=== PATIENT | male | born 1995 | race Hispanic/Latino ===

== ENCOUNTER 2018-07-12 13:13 | Emergency (ER) | payer SELFPAY ==
[2018-07-12] MEDS ORDERED: LEVALBUTEROL 1.25 MG/3 ML NEB ONE (13:42)
[2018-07-12] MEDS ORDERED: FAMOTIDINE 20 MG/2 ML VIAL IV ONE (13:42)
[2018-07-12] MEDS ORDERED: DIPHENHYDRAMINE 50 MG/ML VIAL ONE (13:42)
[2018-07-12] MEDS ORDERED: METHYLPREDNISOLONE 125 MG INJ ONE (13:42)
[2018-07-12] MEDS ORDERED: NA CHLORIDE 0.9% 1,000 ML ONE (13:44)
--- NOTE | 2018-07-12 14:54 | EDPHYS ---
Physician Documentation [facility] Name: Randal Arnett Age: 23 yrs Sex: Male : 1995 Arrival Date: 07/12/2018 Time: 13:16 Bed 7 Private MD: ED Physician Rojelio Warner HPI: 07/12 14:32 This 23 yrs old Male presents to ER via Ambulatory with complaints of Allergic rn Reaction. 14:32 The patient presents with difficulty swallowing, dizziness. Onset: The symptoms/episode rn began/occurred 2 hour(s) ago. Associated signs and symptoms: Pertinent positives: dysphagia, nausea, Pertinent negatives: Altered mental status chest pain, hives, rash, Syncope. Possible causes: cleaning products. Severity of symptoms: At their worst the symptoms were mild in the emergency department the symptoms are unchanged. The patient has not experienced similar symptoms in the past. Reports may have inhaled fumes from attorney, there was steam and he was in room, no history of allergies, began to feel throat swelling, trouble breathing, nausea. Drove himself home, and then here. . Historical: - Allergies: 13:26 No Known Allergies; aa5 - PMHx: 13:26 Anxiety; Depression; aa5 - PSHx: 13:26 None; aa5 - Immunization history:: Adult Immunizations unknown. - Ebola Screening: : No symptoms or risks identified at this time. - Family history:: not pertinent. - Social history:: Smoking status: unknown. - Hospitalizations: : No recent hospitalization is reported. ROS: 14:32 Constitutional: Negative for fever, chills, and weight loss, Eyes: Negative for injury, rn pain, redness, and discharge, Neck: Negative for injury, pain, and swelling, Cardiovascular: Negative for chest pain, and edema, Respiratory: Negative for wheezing, and pleuritic chest pain, Abdomen/GI: Negative for abdominal pain, vomiting, and constipation, MS/Extremity: Negative for injury and deformity, Skin: Negative for injury, rash, and discoloration, Neuro: Negative for headache, weakness, numbness, tingling, and seizure. Exam: 14:32 Constitutional: This is a well developed, well nourished patient who is awake, alert, rn appears anxious. Head/Face: Normocephalic, atraumatic. Eyes: Pupils equal round and reactive to light, extra-ocular motions intact. Lids and lashes normal. Conjunctiva and sclera are non-icteric and not injected. Cornea within normal limits. Periorbital areas with no swelling, redness, or edema. ENT: no stridor Neck: Trachea midline, no thyromegaly or masses palpated, and no cervical lymphadenopathy. Supple, full range of motion without nuchal rigidity, or vertebral point tenderness. No Meningismus. Cardiovascular: Regular rate and rhythm, No pulse deficits. Respiratory: Lungs have equal breath sounds bilaterally, clear to auscultation, mild tachypnea but no wheezing or stridor. Abdomen/GI: soft, non-tender MS/ Extremity: Pulses equal, no cyanosis. Neurovascular intact. Full, normal range of motion. Equal circumference. Neuro: Awake and alert, GCS 15, oriented to person, place, time, and situation. Cranial nerves II-XII grossly intact. Motor strength 5/5 in all extremities. Sensory grossly intact. Cerebellar exam normal. Normal gait. Vital Signs: 13:21 Pulse 92; Resp 20 S; Temp 98.7(TE); Pulse Ox 98% on R/A; aa5 MDM: 13:24 Patient medically screened. rn 14:53 Differential diagnosis: angioedema, inhalation reaction. Data reviewed: vital signs, rn nurses notes, and as a result, I will discharge patient. Counseling: I had a detailed discussion with the patient and/or guardian regarding: the historical points, exam findings, and any diagnostic results supporting the discharge/admit diagnosis, the need for outpatient follow up, to return to the emergency department if symptoms worsen or persist or if there are any questions or concerns that arise at home. Response to treatment: the patient's symptoms have markedly improved after treatment, and as a result, I will discharge patient. Special discussion: I discussed with the patient/guardian in detail that at this point there is no indication for admission to the hospital. It is understood, however, that if the symptoms persist or worsen the patient needs to return immediately for re-evaluation. Administered Medications: 13:40 Drug: NS 0.9% 1000 ml Route: IV; Rate: 1000 ml; Site: right wrist; sg 14:45 Follow up: IV Status: Completed infusion iw 13:45 Drug: Benadryl 25 mg Route: IVP; Site: right antecubital; sg 15:05 Follow up: Response: No adverse reaction; Marked relief of symptoms iw 13:45 Drug: Pepcid 20 mg Route: IVP; Site: right antecubital; sg 14:00 Follow up: Response: No adverse reaction iw 13:45 Drug: Xopenex 1.25 mg Route: Inhalation; sg 13:47 Not Given (Physician Discretion): SOLU-Medrol 2 mg/kg IVP once sg 13:48 Drug: SOLU-Medrol 125 mg Route: IVP; Site: right wrist; sg 15:05 Follow up: Response: No adverse reaction iw Disposition: 07/12/18 14:54 Discharged to Home. Impression: Inhalation reaction, Acute allergic reaction. - Condition is Stable. - Discharge Instructions: Chemical Inhalation Injury, Adult. - Prescriptions for Prednisone 20 mg Oral Tablet - take 3 tablet by ORAL route once daily for 5 days; 15 tablet. Albuterol Sulfate 90 mcg/actuation - inhale 1-2 puff by INHALATION route every 4-6 hours; 1 Inhaler. - Work release form, Medication Reconciliation Form, Thank You Letter, Antibiotic Education, Prescription Opioid Use form. - Follow up: Private Physician; When: As needed; Reason: Recheck today's complaints, Re-evaluation by your physician. - Problem is new. - Symptoms have improved. Signatures: Fredy Parker RN RN Christina Gomez RN RN Rojelio Warner MD MD rn Calderon, Audri, RN RN aa5 Corrections: (The following items were deleted from the chart) 15:05 14:54 07/12/2018 14:54 Discharged to Home. Impression: Inhalation reaction; Acute iw allergic reaction. Condition is Stable. Forms are Medication Reconciliation Form, Thank You Letter, Antibiotic Education, Prescription Opioid Use. Follow up: Private Physician; When: As needed; Reason: Recheck today's complaints, Re-evaluation by your physician. Problem is new. Symptoms have improved. rn
--- NOTE | 2018-07-12 14:54 | ER ---
Nurse's Notes [facility] Name: Randal Arnett Age: 23 yrs Sex: Male : 1995 Arrival Date: 07/12/2018 Time: 13:16 Bed 7 Private MD: Diagnosis: Inhalation reaction;Acute allergic reaction Presentation: 07/12 13:21 Presenting complaint: Patient states: "I think I am having an allergic reaction, I aa5 started feeling my throat tight a couple of hours ago". Redness and swelling noted under eyes. 13:21 Transition of care: patient was not received from another setting of care. Onset of aa5 symptoms was July 12, 2018. Care prior to arrival: None. 13:21 Method Of Arrival: Ambulatory aa5 13:21 Acuity: KWAN 2 aa5 15:04 Onset: The symptoms/episode began/occurred suddenly. Anaphylaxis evaluation, no signs iw or symptoms of anaphylaxis were noted. Risk Assessment: Do you want to hurt yourself or someone else? Patient reports no desire to harm self or others. Initial Sepsis Screen: Does the patient meet any 2 criteria? No. Patient's initial sepsis screen is negative. Does the patient have a suspected source of infection? No. Patient's initial sepsis screen is negative. Triage Assessment: 15:04 General: Behavior is calm. iw Historical: - Allergies: 13:26 No Known Allergies; aa5 - PMHx: 13:26 Anxiety; Depression; aa5 - PSHx: 13:26 None; aa5 - Immunization history:: Adult Immunizations unknown. - Ebola Screening: : No symptoms or risks identified at this time. - Family history:: not pertinent. - Social history:: Smoking status: unknown. - Hospitalizations: : No recent hospitalization is reported. Screenin:40 Abuse screen: Denies threats or abuse. Denies injuries from another. Nutritional sg screening: No deficits noted. Tuberculosis screening: No symptoms or risk factors identified. Never had TB. Fall Risk None identified. Assessment: 13:40 General: Appears in no apparent distress. well groomed, well developed, well nourished. sg Pain: Complains of pain in right eye and left eye. 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 Full function Gait is steady, Speech is normal. Cardiovascular: Heart tones S1 S2 present. Respiratory: Airway is patent Respiratory effort is even, unlabored, Respiratory pattern is regular, symmetrical, Breath sounds are clear bilaterally. GI: No signs and/or symptoms were reported involving the gastrointestinal system. : No signs and/or symptoms were reported regarding the genitourinary system. EENT: No signs and/or symptoms were reported regarding the EENT system. Derm: Skin is intact, is healthy with good turgor, Skin is dry, Skin is normal, Skin temperature is warm. Musculoskeletal: No signs and/or symptoms reported regarding the musculoskeletal system. Vital Signs: 13:21 Pulse 92; Resp 20 S; Temp 98.7(TE); Pulse Ox 98% on R/A; aa5 ED Course: 13:16 Patient arrived in ED. mr 13:21 Arm band placed on Patient placed in an exam room, on a stretcher. aa5 13:24 Rojelio Warner MD is Attending Physician. rn 13:26 Triage completed. aa5 13:40 Patient has correct armband on for positive identification. iw 13:42 Fredy Parker, RN is Primary Nurse. sg 15:03 No provider procedures requiring assistance completed. IV discontinued, intact, iw bleeding controlled, No redness/swelling at site. Pressure dressing applied. Administered Medications: 13:40 Drug: NS 0.9% 1000 ml Route: IV; Rate: 1000 ml; Site: right wrist; sg 14:45 Follow up: IV Status: Completed infusion iw 13:45 Drug: Benadryl 25 mg Route: IVP; Site: right antecubital; sg 15:05 Follow up: Response: No adverse reaction; Marked relief of symptoms iw 13:45 Drug: Pepcid 20 mg Route: IVP; Site: right antecubital; sg 14:00 Follow up: Response: No adverse reaction iw 13:45 Drug: Xopenex 1.25 mg Route: Inhalation; sg 13:47 Not Given (Physician Discretion): SOLU-Medrol 2 mg/kg IVP once sg 13:48 Drug: SOLU-Medrol 125 mg Route: IVP; Site: right wrist; sg 15:05 Follow up: Response: No adverse reaction iw Outcome: 14:54 Discharge ordered by . rn 15:04 Discharged to home ambulatory. iw 15:04 Condition: good 15:04 Discharge instructions given to patient, Instructed on discharge instructions, follow up and referral plans. medication usage, Demonstrated understanding of instructions, follow-up care, medications, Prescriptions given X 2. 15:05 Patient left the ED. iw Signatures: Fredy Parker, RN Lashay Hale Irene RN Rojelio Ruff MD MD rn Calderon, Audri, RN RN aa5
== END 2018-07-12 15:05 | disposition home or self-care (01) ==
LOC: ER 13:13
DX: R13.10 Dysphagia, unspecified (principal); R42 Dizziness and giddiness; T78.49XA Other allergy, initial encounter; F41.9 Anxiety disorder, unspecified; F32.9 Major depressive disorder, single episode, unspecified
CPT/HCPCS: 96361; 96374; 96375; 99284; J2930; J7030

== ENCOUNTER 2018-11-24 13:41 | Emergency (ER) | payer SELFPAY ==
[2018-11-24] MEDS ORDERED: LEVALBUTEROL 1.25 MG/3 ML NEB ONE (14:25)
[2018-11-24 14:35] LABS: Absolute Lymphocytes (CBC) 3.7 K/uL (0.7-4.9); Basophils % 0.6 % (0-1.3); Hematocrit 43.7 % (39.6-49.0); Lymphocytes % 36.9 % (15.3-44.8); MPV 9.4 fL (7.6-11.3); RBC Red Blood Cell Count 4.71 M/uL (4.33-5.43)
--- NOTE | 2018-11-24 14:38 | RAD REPORT ---
EXAM DESCRIPTION: Peyton Single View11/24/2018 2:32 pm CLINICAL HISTORY: Shortness of breath COMPARISON: 2017 FINDINGS: The lungs appear clear of acute infiltrate. The heart is normal size IMPRESSION: No acute abnormalities displayed
[2018-11-24 14:55] LABS: ALT/SGPT 16 U/L (12-78); AST/SGOT 14 U/L (15-37); Albumin 4.2 g/dL (3.4-5.0); Alkaline Phosphatase 89 U/L (45-117); BUN Blood Urea Nitrogen 12 mg/dL (7-18); Bicarbonate 22 mmol/L (21-32); Bilirubin Direct 0.1 mg/dL (0-0.2); Bilirubin Total 0.4 mg/dL (0.2-1.0); Glucose Level 88 mg/dL (74-106); Magnesium 1.9 mg/dL (1.8-2.4); NT PRO-BNP 169 pg/mL (<125); Potassium 3.8 mmol/L (3.5-5.1); Protein, Total 7.8 g/dL (6.4-8.2); Sodium Level 145 mmol/L (136-145); Troponin (Emerg Dept Use Only) < 0.02 ng/mL (0.0-0.045)
[2018-11-24 15:09] LABS: Barbiturates NEGATIVE (NEGATIVE); Benzodiazepines POSITIVE (NEGATIVE); Cocaine NEGATIVE (NEGATIVE); METHAMPHETAM NEGATIVE (NEGATIVE); Methadone NEGATIVE (NEGATIVE); Opiates NEGATIVE (NEGATIVE); Phencyclidine NEGATIVE (NEGATIVE); THC Cannibis POSITIVE (NEGATIVE)
--- NOTE | 2018-11-24 16:05 | EDPHYS ---
Physician Documentation [facility] Name: Randal Arnett Age: 23 yrs Sex: Male : 1995 Arrival Date: 11/24/2018 Time: 13:42 Bed 16 Private MD: ED Physician Rojelio Warner HPI: 11/24 14:07 This 23 yrs old Male presents to ER via Ambulatory with complaints of jmm Shortness Of Breath, Chest Pain, Foot Pain. 14:07 The patient has shortness of breath at rest. Onset: The symptoms/episode began/occurred jmm gradually, 3 week(s) ago. Duration: The symptoms are continuous, and are steadily getting worse. The patient's shortness of breath is aggravated by nothing, is alleviated by nothing. Associated signs and symptoms: Pertinent positives: chest pain. This is a 23 year old male with a history of anxiety and depression that presents to the ED with complaints of cough, shortness of breath beginning approx 3 weeks ago. Patient states he has had similar symptoms with previous episodes of bronchitis. Patient denies fever or chills. Patient also complains of intermittent chest pain. . Historical: - Allergies: 13:50 No Known Allergies; la1 - Home Meds: 13:50 None [Active]; la1 - PMHx: 13:50 Anxiety; Depression; la1 - PSHx: 13:50 None; la1 - Immunization history:: Adult Immunizations up to date. - Social history:: Smoking status: Patient uses tobacco products, smokes one-half pack cigarettes per day. - Ebola Screening: : No symptoms or risks identified at this time. ROS: 14:07 Abdomen/GI: Negative for abdominal pain, nausea, vomiting, diarrhea, and constipation, jmm Back: Negative for injury and pain, : Negative for injury, bleeding, discharge, and swelling, MS/Extremity: Negative for injury and deformity, Skin: Negative for injury, rash, and discoloration, Neuro: Negative for headache, weakness, numbness, tingling, and seizure. 14:07 Constitutional: Positive for body aches. 14:07 Cardiovascular: Positive for chest pain. 14:07 Respiratory: Positive for cough. 14:07 Psych: 14:07 All other systems are negative. Exam: 14:07 Head/Face: atraumatic. Eyes: EOMI, no conjunctival erythema appreciated ENT: Moist jmm Mucus Membranes Neck: Trachea midline, Supple Chest/axilla: Normal chest wall appearance and motion. 14:07 Abdomen/GI: Non distended, soft Back: Normal ROM Skin: General appearance color normal MS/ Extremity: Moves all extremities, no obvious deformities appreciated, no edema noted to the lower extremities Neuro: Awake and alert, normal gait Psych: Behavior is normal, Mood is normal, Patient is cooperative and pleasant 14:07 Constitutional: The patient appears alert, awake, anxious. 14:07 Cardiovascular: Rate: normal, Rhythm: regular, Pulses: no pulse deficits are appreciated. 14:07 Respiratory: the patient does not display signs of respiratory distress, Respirations: normal, Breath sounds: are clear throughout. Vital Signs: 13:50 BP 113 / 69; Pulse 82; Resp 24; Temp 98.3; Pulse Ox 100% on R/A; Weight 79.38 kg; la1 Height 5 ft. 9 in. (175.26 cm); 14:30 BP 109 / 69; Pulse 64; Resp 18; Pulse Ox 99% on R/A; rv 15:45 BP 119 / 60; Pulse 86; Resp 18; Pulse Ox 100% on R/A; rv 16:47 BP 118 / 66; Pulse 67; Resp 16; Temp 98; Pulse Ox 100% on R/A; rv 13:50 Body Mass Index 25.84 (79.38 kg, 175.26 cm) la1 MDM: 14:07 Patient medically screened. [facility] 16:02 Data reviewed: vital signs, nurses notes. [facility] 16:02 Counseling: I had a detailed discussion with the patient and/or guardian regarding: the [facility] historical points, exam findings, and any diagnostic results supporting the discharge/admit diagnosis, lab results, radiology results, the need for outpatient follow up, to return to the emergency department if symptoms worsen or persist or if there are any questions or concerns that arise at home. ED course: Patient is alert and non toxic in appearance in the ED. I discussed with the patient the need to follow up with pcp. Symptoms are most likely due to a viral infection. CXR clear, no Leukocytosis. Patient otherwise given strict return precautions. patient understood and agrees with the plan of care. . 11/24 14:11 Order name: Basic Metabolic Panel [facility] 11/24 14:11 Order name: CBC with Diff [facility] 11/24 14:11 Order name: LFT's; Complete Time: 15:08 [facility] 11/24 14:11 Order name: Magnesium; Complete Time: 15:08 [facility] 11/24 14:11 Order name: NT PRO-BNP; Complete Time: 15:08 [facility] 11/24 14:11 Order name: PT-INR; Complete Time: 15:08 [facility] 11/24 14:11 Order name: Troponin (emerg Dept Use Only); Complete Time: 15:08 [facility] 11/24 14:11 Order name: XRAY Chest (1 view); Complete Time: 14:40 [facility] 11/24 14:11 Order name: EKG; Complete Time: 14:12 [facility] 11/24 14:11 Order name: D-Dimer; Complete Time: 15:08 [facility] 11/24 14:12 Order name: Basic Metabolic Panel; Complete Time: 15:08 [facility] 11/24 14:12 Order name: CBC with Automated Diff; Complete Time: 14:40 [facility] 11/24 14:25 Order name: Urine Drug Screen; Complete Time: 15:10 [facility] 11/24 14:11 Order name: Cardiac monitoring; Complete Time: 14:42 [facility] 11/24 14:11 Order name: EKG - Nurse/Tech; Complete Time: 14:42 [facility] 11/24 14:11 Order name: IV Saline Lock; Complete Time: 14:42 [facility] 11/24 14:11 Order name: Labs collected and sent; Complete Time: 14:42 [facility] 11/24 14:11 Order name: O2 Per Protocol; Complete Time: 14:42 [facility] 11/24 14:11 Order name: O2 Sat Monitoring; Complete Time: 14:42 [facility] Administered Medications: 14:15 Drug: Xopenex (3) 1.25 mg Route: Inhalation; rv 15:42 Follow up: Response: Marked relief of symptoms rv Disposition: 18:13 Co-signature as Attending Physician, Rojelio Warner MD. rn Disposition: 11/24/18 16:04 Discharged to Home. Impression: Acute bronchitis. - Condition is Stable. - Discharge Instructions: Acute Bronchitis, Adult. - Prescriptions for Prednisone 20 mg Oral Tablet - take 3 tablet by ORAL route once daily for 5 days; 15 tablet. Albuterol Sulfate 90 mcg/actuation - inhale 1-2 puff by INHALATION route every 4-6 hours; 1 Inhaler. - Medication Reconciliation Form, Thank You Letter, Antibiotic Education, Prescription Opioid Use, Work release form form. - Follow up: Private Physician; When: 2 - 3 days; Reason: Recheck today's complaints, Continuance of care, Re-evaluation by your physician. Signatures: Dispatcher [employer] EDAlonzo Deluca PA PA jmm Nieto, Roman, MD MD rn Buddy Almeida RN RN laEben Raygoza RN RN rv Corrections: (The following items were deleted from the chart) 16:48 16:04 11/24/2018 16:04 Discharged to Home. Impression: Acute bronchitis. Condition is rv Stable. Forms are Medication Reconciliation Form, Thank You Letter, Antibiotic Education, Prescription Opioid Use. Follow up: Private Physician; When: 2 - 3 days; Reason: Recheck today's complaints, Continuance of care, Re-evaluation by your physician. ludwig
--- NOTE | 2018-11-24 16:05 | ER ---
Nurse's Notes [facility] Name: Randal Arnett Age: 23 yrs Sex: Male : 1995 Arrival Date: 11/24/2018 Time: 13:42 Bed 16 Private MD: Diagnosis: Acute bronchitis Presentation: 11/24 13:51 Presenting complaint: Patient states: I have been feeling very SOB and having a burning la1 pain in my chest. I just got over a cough for the last three weeks. Transition of care: patient was not received from another setting of care. Onset of symptoms was November 24, 2018. Risk Assessment: Do you want to hurt yourself or someone else? Patient reports no desire to harm self or others. Initial Sepsis Screen: Does the patient meet any 2 criteria? No. Patient's initial sepsis screen is negative. Does the patient have a suspected source of infection? No. Patient's initial sepsis screen is negative. Care prior to arrival: None. 13:51 Method Of Arrival: Ambulatory la1 13:51 Acuity: KWAN 3 la1 Triage Assessment: 14:02 General: Appears in no apparent distress. General: Behavior is anxious, crying. rv Respiratory: Reports shortness of breath at rest the patient has mild shortness of breath. Respiratory: Airway is patent Breath sounds are clear bilaterally. Onset: The symptoms/episode began/occurred suddenly. Historical: - Allergies: 13:50 No Known Allergies; la1 - Home Meds: 13:50 None [Active]; la1 - PMHx: 13:50 Anxiety; Depression; la1 - PSHx: 13:50 None; la1 - Immunization history:: Adult Immunizations up to date. - Social history:: Smoking status: Patient uses tobacco products, smokes one-half pack cigarettes per day. - Ebola Screening: : No symptoms or risks identified at this time. Screenin:02 Abuse screen: Denies threats or abuse. Denies injuries from another. Nutritional rv screening: No deficits noted. Tuberculosis screening: No symptoms or risk factors identified. Fall Risk None identified. Assessment: 14:00 General: Appears in no apparent distress. Behavior is anxious, crying. Pain: Complains rv of pain in chest Quality of pain is described as burning, Pain began suddenly, 1 day ago. Neuro: Level of Consciousness is awake, alert, obeys commands, Oriented to person, place, time, situation. Cardiovascular: Patient's skin is warm and dry. Rhythm is regular. Respiratory: Airway is patent Respiratory effort is even, unlabored, Breath sounds are clear bilaterally. GI: No signs and/or symptoms were reported involving the gastrointestinal system. : No signs and/or symptoms were reported regarding the genitourinary system. EENT: No signs and/or symptoms were reported regarding the EENT system. Derm: Skin is intact. Musculoskeletal: No signs and/or symptoms reported regarding the musculoskeletal system. 15:42 Reassessment: Patient appears in no apparent distress at this time. Patient and/or rv family updated on plan of care and expected duration. Pain level reassessed. Patient is alert, oriented x 3, equal unlabored respirations, skin warm/dry/pink. Patient states feeling better. Patient states symptoms have improved. Vital Signs: 13:50 BP 113 / 69; Pulse 82; Resp 24; Temp 98.3; Pulse Ox 100% on R/A; Weight 79.38 kg; la1 Height 5 ft. 9 in. (175.26 cm); 14:30 BP 109 / 69; Pulse 64; Resp 18; Pulse Ox 99% on R/A; rv 15:45 BP 119 / 60; Pulse 86; Resp 18; Pulse Ox 100% on R/A; rv 16:47 BP 118 / 66; Pulse 67; Resp 16; Temp 98; Pulse Ox 100% on R/A; rv 13:50 Body Mass Index 25.84 (79.38 kg, 175.26 cm) la1 ED Course: 13:42 Patient arrived in ED. as 13:50 Arm band placed on left wrist. la1 13:51 Triage completed. la1 13:52 Eben Mauricio, LOPEZ is Primary Nurse. rv 14:00 Alonzo Rich PA is PHCP. [facility] 14:00 Rojelio Warner MD is Attending Physician. [facility] 14:02 EKG done, by central processing technician. reviewed by Rojelio Warner MD. at1 14:03 Patient has correct armband on for positive identification. Placed in gown. Bed in low rv position. Call light in reach. Side rails up X 1. manager monitoring on. Pulse ox on. NIBP on. 14:15 Inserted saline lock: 18 gauge in left forearm, using aseptic technique. Blood rv collected. 14:33 XRAY Chest (1 view) In Process Unspecified. EDMS 16:47 No provider procedures requiring assistance completed. IV discontinued, intact, rv bleeding controlled, No redness/swelling at site. Pressure dressing applied. Administered Medications: 14:15 Drug: Xopenex (3) 1.25 mg Route: Inhalation; rv 15:42 Follow up: Response: Marked relief of symptoms rv Outcome: 16:04 Discharge ordered by . ludwig 16:47 Discharged to home ambulatory. rv 16:47 Condition: good 16:47 Discharge instructions given to patient, Instructed on discharge instructions, follow up and referral plans. medication usage, Demonstrated understanding of instructions, follow-up care, medications, Prescriptions given X 2. 16:48 Patient left the ED. rv Signatures: Dispatcher [employer] EDMS Alonzo Rich PA PA jmm Martinez, Amelia as Gonzales, Amanda, house painter helper EKG Tat1 Buddy Almeida RN RN la1 Eben Mauricio, RN RN rv Corrections: (The following items were deleted from the chart) 13:53 13:50 BP 113 / 69; Pulse 82bpm; Resp 16bpm; Pulse Ox 100% RA; Temp 98.3F; 79.38 kg; la1 Height 5 ft. 9 in.; BMI: 25.8; la1
--- NOTE | 2018-11-25 09:10 | EKG ---
Test Date: 2018-11-24 Test Time: 13:58:17 Setup Technician: JOE MEASUREMENT RESULTS: Intervals: Rate: 87 AR: 156 QRSD: 84 QT: 344 QTc: 413 [place]: P: 76 AR: 156 QRS: 66 T: 67 INTERPRETIVE STATEMENTS: Normal sinus rhythm Normal ECG Compared to ECG 06/21/2016 15:50:03 Sinus bradycardia no longer present Electronically Signed On 11-25-18 09:08:06 CDT by Destin Wagner
== END 2018-11-24 16:48 | disposition home or self-care (01) ==
LOC: ER 13:41
DX: J20.9 Acute bronchitis, unspecified (principal); F17.210 Nicotine dependence, cigarettes, uncomplicated
CPT/HCPCS: 36415; 71045; 80048; 80076; 80307; 83735; 83880; 84484; 85025; 85379; 85610; 93005; 99285

== ENCOUNTER 2019-03-11 08:00 | Emergency (ER) | payer SELFPAY ==
--- NOTE | 2019-03-11 08:22 | ER ---
Nurse's Notes [facility] Name: Randal Arnett Age: 23 yrs Sex: Male : 1995 Arrival Date: 03/11/2019 Time: 08: Bed 16 Private MD: Diagnosis: Sebaceous cyst;Periorbital swelling Presentation: 03/11 08:04 Presenting complaint: Patient states: Right eye started swelling yesterday and then he rb1 thinks that he was bitten by a misquito. Transition of care: patient was not received from another setting of care. Onset of symptoms was March 10, 2019. Risk Assessment: Do you want to hurt yourself or someone else? Patient reports no desire to harm self or others. Initial Sepsis Screen: Does the patient meet any 2 criteria? No. Patient's initial sepsis screen is negative. Does the patient have a suspected source of infection? Yes: Skin breakdown/wound. Care prior to arrival: None. 08:04 Method Of Arrival: Ambulatory rb1 08:04 Acuity: KWAN 4 rb1 Triage Assessment: 08:04 General: Appears uncomfortable, Behavior is calm, cooperative, Denies fever. Pain: rb1 Complains of pain in right eye Pain currently is 7 out of 10 on a pain scale. Pain began 1 day ago. EENT: Eyes are tearing on right eye swelling noted to the right eye. Neuro: Level of Consciousness is awake, alert, obeys commands, Oriented to person, place, time, situation. Cardiovascular: Capillary refill < 3 seconds is brisk in bilateral fingers. Respiratory: Airway is patent Respiratory effort is even, unlabored, Respiratory pattern is regular, symmetrical. GI: No signs and/or symptoms were reported involving the gastrointestinal system. : No signs and/or symptoms were reported regarding the genitourinary system. Derm: Skin is pink, warm \T\ dry. Musculoskeletal: Swelling present in right eye. Historical: - Allergies: 08:04 No Known Allergies; rb1 - Home Meds: 08:04 None [Active]; rb1 - PMHx: 08:04 Anxiety; Depression; Asthma; rb1 - PSHx: 08:04 None; rb1 - Immunization history:: Adult Immunizations up to date. - Social history:: Smoking status: Patient uses tobacco products, smokes one-half pack cigarettes per day. - Ebola Screening: : Patient negative for fever greater than or equal to 101.5 degrees Fahrenheit, and additional compatible Ebola Virus Disease symptoms. Screenin:04 Abuse screen: Denies threats or abuse. Nutritional screening: No deficits noted. rb1 Tuberculosis screening: No symptoms or risk factors identified. Fall Risk None identified. Vital Signs: 08:04 BP 125 / 74; Pulse 56; Resp 17; Temp 97.9(O); Pulse Ox 100% on R/A; Weight 81.65 kg rb1 (R); Height 5 ft. 9 in. (175.26 cm) (R); Pain 7/10; 08:04 Body Mass Index 26.58 (81.65 kg, 175.26 cm) rb1 ED Course: 08:01 Patient arrived in ED. as 08:04 Keri Garcia, RN is Primary Nurse. rb1 08:04 Arm band placed on right wrist. rb1 08:04 Patient has correct armband on for positive identification. Bed in low position. Call rb1 light in reach. Side rails up X 1. Pulse ox on. NIBP on. 08:05 Joe Banegas MD is Attending Physician. ps1 08:32 Triage completed. rb1 08:41 No provider procedures requiring assistance completed. Patient did not have IV access rb1 during this emergency room visit. Administered Medications: 08:29 Drug: Decadron 10 mg Route: PO; rb1 08:41 Follow up: Response: Medication administered at discharge. rb1 08:29 Drug: Motrin 800 mg Route: PO; rb1 08:41 Follow up: Response: Medication administered at discharge. rb1 Outcome: 08:22 Discharge ordered by . ps1 08:41 Discharged to home ambulatory, with significant other. rb1 08:41 Condition: stable 08:41 Discharge instructions given to patient, Instructed on discharge instructions, follow up and referral plans. medication usage, Demonstrated understanding of instructions, follow-up care, medications, Prescriptions given X 2. 08:43 Patient left the ED. rb1 Signatures: Bella Jarvis as Keri Garcia, LOPEZ RN rb1 Joe Banegas MD MD ps1
--- NOTE | 2019-03-11 08:22 | EDPHYS ---
Physician Documentation [facility] Name: Randal Arnett Age: 23 yrs Sex: Male : 1995 Arrival Date: 03/11/2019 Time: 08:01 Bed 16 Private MD: ED Physician Joe Banegas HPI: 03/11 08:16 This 23 yrs old Male presents to ER via Unassigned with complaints of Eye ps1 Swelling. 08:16 Patient has 1 day of periorbial swelling of right eye. Noticed yesterday and thought ps1 maybe he had a mosquito bite. Patient has underlying sebaceous cyst. No pain with eye movement. No signs of orbital cellulitis. Feels tense in tissues underneath eye. No fever. . Historical: - Allergies: 08:04 No Known Allergies; rb1 - Home Meds: 08:04 None [Active]; rb1 - PMHx: 08:04 Anxiety; Depression; Asthma; rb1 - PSHx: 08:04 None; rb1 - Immunization history:: Adult Immunizations up to date. - Social history:: Smoking status: Patient uses tobacco products, smokes one-half pack cigarettes per day. - Ebola Screening: : Patient negative for fever greater than or equal to 101.5 degrees Fahrenheit, and additional compatible Ebola Virus Disease symptoms. ROS: 08:16 Constitutional: Negative for fever, chills, and weight loss, ENT: Negative for injury, ps1 pain, and discharge, Cardiovascular: Negative for chest pain, palpitations, and edema, Respiratory: Negative for shortness of breath, cough, wheezing, and pleuritic chest pain, Abdomen/GI: Negative for abdominal pain, nausea, vomiting, diarrhea, and constipation, Neuro: Negative for headache, weakness, numbness, tingling, and seizure. 08:16 Eyes: Positive for periorbital swelling of right eye. Exam: 08:16 Constitutional: This is a well developed, well nourished patient who is awake, alert, ps1 and in no acute distress. Head/Face: Normocephalic, atraumatic. Cardiovascular: Regular rate and rhythm. No gallops, murmurs, or rubs. Normal PMI, no JVD. No pulse deficits. Respiratory: Lungs have equal breath sounds bilaterally, clear to auscultation and percussion. No rales, rhonchi or wheezes noted. No increased work of breathing, no retractions or nasal flaring. Abdomen/GI: Soft, non-tender, with normal bowel sounds. No distension or tympany. No guarding or rebound. No evidence of tenderness throughout. Skin: Warm, dry with normal turgor. Normal color with no rashes, no lesions, and no evidence of cellulitis. MS/ Extremity: Pulses equal, no cyanosis. Neurovascular intact. Full, normal range of motion. Neuro: Awake and alert, GCS 15, oriented to person, place, time, and situation. Cranial nerves II-XII grossly intact. Sensory grossly intact. 08:16 Eyes: Periorbital structures: cellulitis, is not appreciated, erythema, is not appreciated, swelling, that is moderate, sebaceous cyst infralateral aspect of right periorbital tissue. Expressed. . Vital Signs: 08:04 BP 125 / 74; Pulse 56; Resp 17; Temp 97.9(O); Pulse Ox 100% on R/A; Weight 81.65 kg rb1 (R); Height 5 ft. 9 in. (175.26 cm) (R); Pain 7/10; 08:04 Body Mass Index 26.58 (81.65 kg, 175.26 cm) rb1 MDM: 08:16 Differential diagnosis: periorbital cellulitis, orbital cellulitis, histamine reaction, ps1 localized swelling, sebaceous cyst, and others. Data reviewed: vital signs, nurses notes. Counseling: I had a detailed discussion with the patient and/or guardian regarding: the historical points, exam findings, and any diagnostic results supporting the discharge/admit diagnosis, to return to the emergency department if symptoms worsen or persist or if there are any questions or concerns that arise at home. 08:22 Patient medically screened. ps1 Administered Medications: 08:29 Drug: Decadron 10 mg Route: PO; rb1 08:41 Follow up: Response: Medication administered at discharge. rb1 08:29 Drug: Motrin 800 mg Route: PO; rb1 08:41 Follow up: Response: Medication administered at discharge. rb1 Disposition: 03/11/19 08:22 Discharged to Home. Impression: Sebaceous cyst, Periorbital swelling. - Condition is Stable. - Discharge Instructions: Orbital Cellulitis, Epidermal Cyst. - Prescriptions for Anaprox DS 550 mg Oral Tablet - take 1 tablet by ORAL route every 12 hours As needed; 20 tablet. Clindamycin HCl 300 mg Oral Capsule - take 1 capsule by ORAL route every 6 hours for 10 days; 40 capsule. - Work release form, Medication Reconciliation Form, Thank You Letter, Antibiotic Education, Prescription Opioid Use form. - Follow up: Emergency Department; When: As needed; Reason: Fever > 102 F, Worsening of condition, pain with eye movement. Visual changes. - Problem is new. - Symptoms have improved. Signatures: Keri Garcia RN RN rb1 Joe Banegas MD MD ps1 Corrections: (The following items were deleted from the chart) 08:43 08:22 03/11/2019 08:22 Discharged to Home. Impression: Sebaceous cyst; Periorbital rb1 swelling. Condition is Stable. Forms are Medication Reconciliation Form, Thank You Letter, Antibiotic Education, Prescription Opioid Use. Follow up: Emergency Department; When: As needed; Reason: Fever > 102 F, Worsening of condition, pain with eye movement. Visual changes. Problem is new. Symptoms have improved. ps1
[2019-03-11] MEDS ORDERED: IBUPROFEN 400 MG TAB ONE (08:27)
[2019-03-11] MEDS ORDERED: dexAMETHasone 4 MG TAB ONE (08:27)
[2019-03-11 09:06] VITALS: BP 125/74; TEMP 97.9; O2SAT 100
== END 2019-03-11 08:43 | disposition home or self-care (01) ==
LOC: ER 08:00
DX: H00.011 Hordeolum externum right upper eyelid (principal); H00.012 Hordeolum externum right lower eyelid; F17.210 Nicotine dependence, cigarettes, uncomplicated
CPT/HCPCS: 99283; J8540

== ENCOUNTER 2019-09-17 07:29 | Emergency (ER) | payer SELFPAY ==
[2019-09-17] MEDS ORDERED: MAGNE/ALUM HYDROXD 30 ML UCUP ONE (08:02)
[2019-09-17] MEDS ORDERED: NA CHLORIDE 0.9% 1,000 ML ONE (08:03)
[2019-09-17] MEDS ORDERED: ONDANSETRON 4 MG/2 ML VIAL ONE (08:03)
[2019-09-17] MEDS ORDERED: LIDOCAINE VISCOUS 2% SOLN 15 ML UDC ONE (08:03)
[2019-09-17 08:22] LABS: Absolute Lymphocytes (CBC) 2.4 K/uL (0.7-4.9); Basophils % 0.7 % (0-1.3); Hematocrit 41.9 % (39.6-49.0); Lymphocytes % 30.2 % (15.3-44.8); MPV 9.8 fL (7.6-11.3); RBC Red Blood Cell Count 4.48 M/uL (4.33-5.43)
[2019-09-17 08:32] LABS: Bilirubin Direct 0.1 mg/dL (0-0.2); Bilirubin Total 0.4 mg/dL (0.2-1.0); Protein, Total 7.3 g/dL (6.4-8.2)
--- NOTE | 2019-09-17 09:39 | ER ---
Nurse's Notes [facility] Name: Randal Arnett Age: 24 yrs Sex: Male : 1995 Arrival Date: 09/17/2019 Time: 07:32 Bed 20 Private MD: None, None Diagnosis: Gastro-esophageal reflux disease;Nausea and vomiting Presentation: 09/16 07:44 Chief complaint: Patient states: Woke up this morning with mild heart burn and ss vomiting. Pt reports that after vomiting episode now his whole abdomen seems to be burning. Coronavirus screen: Proceed with normal triage. Patient denies a cough. Patient denies shortness of breath or difficulty breathing. Patient denies measured and/or subjective temperature greater than 100.4F prior to today's visit. Patient denies travel on a cruise ship or to a country the [facility] currently lists as an affected area. Patient denies contact with known and/or suspected case of COVID-19. Ebola Screen: Patient denies exposure to infectious person. Patient denies travel to an Ebola-affected area in the 21 days before illness onset. Initial Sepsis Screen: Does the patient meet any 2 criteria? No. Patient's initial sepsis screen is negative. Does the patient have a suspected source of infection? No. Patient's initial sepsis screen is negative. Risk Assessment: Do you want to hurt yourself or someone else? Patient reports no desire to harm self or others. Onset of symptoms was September 17, 2019. 07:44 Method Of Arrival: Ambulatory ss 07:44 Acuity: KWAN 3 ss Historical: - Allergies: 07:46 No Known Allergies; ss - Home Meds: 07:46 None [Active]; ss - PMHx: 07:46 Anxiety; Asthma; Depression; ss - PSHx: 07:46 None; ss - Immunization history:: Adult Immunizations up to date. - Social history:: Smoking status: Patient reports the use of cigarette tobacco products, 1/4 ppd. Screenin:14 Abuse screen: Denies threats or abuse. Denies injuries from another. Nutritional ss screening: No deficits noted. Tuberculosis screening: Never had TB. Fall Risk None identified. Assessment: 07:37 General: Appears distressed, uncomfortable, Behavior is cooperative, anxious, crying, ss Reports feeling ill for this morning. Pt states, "I ate something bad last night.". Denies fever, fatigue, chills. Pain: Complains of pain in abdomen Pain currently is 9 out of 10 on a pain scale. Quality of pain is described as burning, Pain began this morning after vomiting episode Is continuous, Aggravated by increased activity. Neuro: Level of Consciousness is awake, alert, obeys commands, Oriented to person, place, time, situation. Cardiovascular: Capillary refill < 3 seconds is brisk in bilateral fingers. Respiratory: Airway is patent Respiratory effort is even, unlabored, Respiratory pattern is regular, symmetrical. GI: Bowel sounds present X 4 quads. Abd is soft and non tender X 4 quads. Reports nausea, vomiting, since this AM. : No signs and/or symptoms were reported regarding the genitourinary system. EENT: Oral mucosa is moist. Throat is clear. Derm: Skin is intact, is healthy with good turgor, Skin is dry, Skin is pink, warm \\T\\ dry. normal. Musculoskeletal: Swelling absent. 08:14 Reassessment: Patient appears in no apparent distress at this time. Patient and/or ss family updated on plan of care and expected duration. Pain level reassessed. Patient is alert, oriented x 3, equal unlabored respirations, skin warm/dry/pink. Pt reports that symptoms have improved since medication administration. abd burning has decreased as well as nausea. Patient states feeling better. Patient states symptoms have improved. 08:53 Reassessment: Patient appears in no apparent distress at this time. Patient and/or ss family updated on plan of care and expected duration. Pain level reassessed. Patient is alert, oriented x 3, equal unlabored respirations, skin warm/dry/pink. Patient denies pain at this time. Patient states feeling better. Vital Signs: 07:44 BP 120 / 79; Pulse 73; Resp 18; Temp 98.2(TE); Pulse Ox 98% on R/A; Weight 79.38 kg; ss Height 5 ft. 9 in. (175.26 cm); Pain 9/10; 09:43 BP 104 / 66; Pulse 51; Resp 16 S; Pulse Ox 100% on R/A; ss 07:44 Body Mass Index 25.84 (79.38 kg, 175.26 cm) ED Course: 07:32 Patient arrived in ED. mr 07:32 None, None is Private Physician. mr 07:36 Ashley [facility]C [facility]. snw 07:36 José Manuel Mascorro MD is Attending Physician. snw 07:43 Cynthia Oseguera, LOPEZ is Primary Nurse. ss 07:45 Triage completed. ss 07:46 Arm band placed on right wrist. ss 07:50 Inserted saline lock: 20 gauge in right antecubital area, using aseptic technique. ss Blood collected. Patient maintains SpO2 saturation greater than 95% on room air. 08:14 Patient has correct armband on for positive identification. Bed in low position. Call ss light in reach. 08:14 No provider procedures requiring assistance completed. ss 09:52 IV discontinued, intact, bleeding controlled, No redness/swelling at site. Pressure ss dressing applied. Administered Medications: 08:00 Drug: NS 0.9% 1000 ml Route: IV; Rate: 1 bolus; Site: right antecubital; ss 08:53 Follow up: IV Status: Completed infusion; IV Intake: 1000ml ss 08:01 Drug: GI Cocktail without - (Maalox Suspension 30 ml, Lidocaine Liquid 2 % 15 ss ml) Route: PO; 08:52 Follow up: Response: No adverse reaction; Marked relief of symptoms; Pain is decreased ss Intake: 08:53 IV: 1000ml; Total: 1000ml. ss Outcome: 09:38 Discharge ordered by . snw 09:52 Discharged to home ambulatory. ss 09:52 Condition: good 09:52 Condition: improved 09:52 Discharge instructions given to patient, Instructed on discharge instructions, follow up and referral plans. medication usage, Demonstrated understanding of instructions, follow-up care, medications, Prescriptions given X 1. 09:52 Patient left the ED. ss Signatures: Ashley Huitron FNP-C UNISHEAR OPERATOR-Csnw Lashay Hemphill mr Cynthia Oseguera, RN RN ss
--- NOTE | 2019-09-17 09:39 | EDPHYS ---
Physician Documentation [facility] Name: Randal Arnett Age: 24 yrs Sex: Male : 1995 Arrival Date: 09/17/2019 Time: 07:32 Bed 20 Private MD: None, None ED Physician José Manuel Mascorro HPI: 09/16 08:15 This 24 yrs old Male presents to ER via Ambulatory with complaints of snw Abdominal Pain. 08:15 The patient presents with abdominal pain in the epigastric area, in the periumbilical snw area. in the right upper quadrant, in the left upper quadrant. Onset: The symptoms/episode began/occurred suddenly, this morning. The symptoms do not radiate. Associated signs and symptoms: Pertinent positives: nausea and vomiting. The symptoms are described as burning. Severity of pain: At its worst the pain was severe in the emergency department the pain is unchanged. The patient has not experienced similar symptoms in the past, + hx of heartburn. The patient has not recently seen a physician. smokes about 6 cigarettes a day. Historical: - Allergies: 07:46 No Known Allergies; ss - Home Meds: 07:46 None [Active]; ss - PMHx: 07:46 Anxiety; Asthma; Depression; ss - PSHx: 07:46 None; ss - Immunization history:: Adult Immunizations up to date. - Social history:: Smoking status: Patient reports the use of cigarette tobacco products, 1/ ppd. ROS: 08:14 Constitutional: Negative for fever, chills, and weight loss, Eyes: Negative for injury, snw pain, redness, and discharge, ENT: Negative for injury, pain, and discharge, Neck: Negative for injury, pain, and swelling, Cardiovascular: Negative for chest pain, palpitations, and edema, Respiratory: Negative for shortness of breath, cough, wheezing, and pleuritic chest pain, Back: Negative for injury and pain, : Negative for injury, bleeding, discharge, and swelling, MS/Extremity: Negative for injury and deformity, Skin: Negative for injury, rash, and discoloration, Neuro: Negative for headache, weakness, numbness, tingling, and seizure, Psych: Negative for depression, anxiety, suicide ideation, homicidal ideation, and hallucinations. 08:14 Abdomen/GI: Positive for abdominal pain, nausea and vomiting, nausea, vomiting, of the epigastric area, umbilical area, right upper quadrant and left upper quadrant, Negative for diarrhea, fever. Exam: 08:14 Constitutional: This is a well developed, well nourished patient who is awake, alert, snw and in no acute distress. Head/Face: Normocephalic, atraumatic. Eyes: Pupils equal round and reactive to light, extra-ocular motions intact. Lids and lashes normal. Conjunctiva and sclera are non-icteric and not injected. Cornea within normal limits. Periorbital areas with no swelling, redness, or edema. ENT: Nares patent. No nasal discharge, no septal abnormalities noted. Tympanic membranes are normal and external auditory canals are clear. Oropharynx with no redness, swelling, or masses, exudates, or evidence of obstruction, uvula midline. Mucous membranes moist. Neck: Trachea midline, no thyromegaly or masses palpated, and no cervical lymphadenopathy. Supple, full range of motion without nuchal rigidity, or vertebral point tenderness. No Meningismus. Chest/axilla: Normal chest wall appearance and motion. Nontender with no deformity. No lesions are appreciated. Cardiovascular: Regular rate and rhythm with a normal S1 and S2. No gallops, murmurs, or rubs. Normal PMI, no JVD. No pulse deficits. Respiratory: Lungs have equal breath sounds bilaterally, clear to auscultation and percussion. No rales, rhonchi or wheezes noted. No increased work of breathing, no retractions or nasal flaring. Back: No spinal tenderness. No costovertebral tenderness. Full range of motion. Skin: Warm, dry with normal turgor. Normal color with no rashes, no lesions, and no evidence of cellulitis. MS/ Extremity: Pulses equal, no cyanosis. Neurovascular intact. Full, normal range of motion. Neuro: Awake and alert, GCS 15, oriented to person, place, time, and situation. Cranial nerves II-XII grossly intact. Motor strength 5/5 in all extremities. Sensory grossly intact. Cerebellar exam normal. Normal gait. Psych: Awake, alert, with orientation to person, place and time. Behavior, mood, and affect are within normal limits. 08:14 Abdomen/GI: Inspection: abdomen appears normal, Bowel sounds: normal, Palpation: mild abdominal tenderness, moderate abdominal tenderness, in the umbilical area, right upper quadrant and left upper quadrant. Vital Signs: 07:44 BP 120 / 79; Pulse 73; Resp 18; Temp 98.2(TE); Pulse Ox 98% on R/A; Weight 79.38 kg; ss Height 5 ft. 9 in. (175.26 cm); Pain 9/10; 09:43 BP 104 / 66; Pulse 51; Resp 16 S; Pulse Ox 100% on R/A; ss 07:44 Body Mass Index 25.84 (79.38 kg, 175.26 cm) ss MDM: 07:36 Patient medically screened. snw 09:46 Data reviewed: vital signs, nurses notes. Data interpreted: Pulse oximetry: on room air snw is 100 %. Interpretation: normal. Counseling: I had a detailed discussion with the patient and/or guardian regarding: the historical points, exam findings, and any diagnostic results supporting the discharge/admit diagnosis, lab results, the need for outpatient follow up, to return to the emergency department if symptoms worsen or persist or if there are any questions or concerns that arise at home. Response to treatment: the patient's symptoms have markedly improved after treatment. Special discussion: Based on the patient's Hx, exam, and Dx evaluation, there is no indication for emergent surgery or inpatient Tx. It is understood by the patient/guardian that if the Sx's persist or worsen they need to return immediately for re-evaluation. Based on the history and exam findings, there is no indication for further emergent testing or inpatient evaluation. I discussed with the patient/guardian the need to see the primary care provider for further evaluation of the symptoms. 09/16 07:35 Order name: Basic Metabolic Panel snw 09/16 07:35 Order name: CBC with Diff; Complete Time: 08:28 snw 09/16 07:35 Order name: Hepatic Function; Complete Time: 08:38 snw 09/16 07:35 Order name: Lipase; Complete Time: 08:38 snw 09/16 07:36 Order name: Basic Metabolic Panel; Complete Time: 08:38 EDMS 09/16 07:35 Order name: IV Saline Lock; Complete Time: 08:07 snw 09/16 07:35 Order name: Labs collected and sent; Complete Time: 08:07 snw Administered Medications: 08:00 Drug: NS 0.9% 1000 ml Route: IV; Rate: 1 bolus; Site: right antecubital; ss 08:53 Follow up: IV Status: Completed infusion; IV Intake: 1000ml ss 08:01 Drug: GI Cocktail without - (Maalox Suspension 30 ml, Lidocaine Liquid 2 % 15 ss ml) Route: PO; 08:52 Follow up: Response: No adverse reaction; Marked relief of symptoms; Pain is decreased ss Disposition: 11:14 Co-signature as Attending Physician, José Manuel Mascorro MD I agree with the assessment and kdr plan of care. Disposition: 09/17/19 09:38 Discharged to Home. Impression: Gastro-esophageal reflux disease, Nausea and vomiting. - Condition is Stable. - Discharge Instructions: Gastroesophageal Reflux Disease, Adult, Nausea and Vomiting, Adult, Rehydration, Adult. - Prescriptions for promethazine 25 mg Oral Tablet - take 1 tablet by ORAL route every 6 hours As needed; 20 tablet. - Work release form, Medication Reconciliation Form, Thank You Letter, Antibiotic Education, Prescription Opioid Use form. - Follow up: Emergency Department; When: As needed; Reason: Worsening of condition. Follow up: Private Physician; When: 2 - 3 days; Reason: Recheck today's complaints, Continuance of care, Re-evaluation by your physician. Signatures: Dispatcher [employer] EDAZ José Manuel Mascorro MD MD [facility] Ashley Huitron, RELAY ADJUSTER-C RELAY ADJUSTER-Csnw Cynthia Oseguera RN RN ss Corrections: (The following items were deleted from the chart) 09:52 09:38 09/17/2019 09:38 Discharged to Home. Impression: Gastro-esophageal reflux ss disease; Nausea and vomiting. Condition is Stable. Forms are Medication Reconciliation Form, Thank You Letter, Antibiotic Education, Prescription Opioid Use. Follow up: Emergency Department; When: As needed; Reason: Worsening of condition. Follow up: Private Physician; When: 2 - 3 days; Reason: Recheck today's complaints, Continuance of care, Re-evaluation by your physician. snw
[2019-09-17 09:59] VITALS: TEMP 98.2
[2019-09-17 10:01] VITALS: BP 104/66; O2SAT 100
== END 2019-09-17 09:52 | disposition home or self-care (01) ==
LOC: ER 07:29
DX: K21.9 Gastro-esophageal reflux disease without esophagitis (principal); R11.2 Nausea with vomiting, unspecified; F17.210 Nicotine dependence, cigarettes, uncomplicated
CPT/HCPCS: 36415; 80048; 80076; 83690; 85025; 96360; 99284; J2405; J7030

== ENCOUNTER 2019-09-19 07:59 | Emergency (ER) | payer SELFPAY ==
[2019-09-19] MEDS ORDERED: MAGNE/ALUM HYDROXD 30 ML UCUP ONE (08:41)
[2019-09-19] MEDS ORDERED: MORPHINE 2 MG/ML SYR ONE (08:42)
[2019-09-19] MEDS ORDERED: ONDANSETRON 4 MG/2 ML VIAL ONE (08:42)
[2019-09-19] MEDS ORDERED: LIDOCAINE VISCOUS 2% SOLN 15 ML UDC ONE (08:42)
[2019-09-19] MEDS ORDERED: FAMOTIDINE 20 MG/2 ML VIAL IV ONE (08:42)
[2019-09-19 08:57] LABS: Absolute Lymphocytes (CBC) 1.6 K/uL (0.7-4.9); Basophils % 0.4 % (0-1.3); Hematocrit 43.1 % (39.6-49.0); Lymphocytes % 19.5 % (15.3-44.8); MPV 9.4 fL (7.6-11.3); RBC Red Blood Cell Count 4.59 M/uL (4.33-5.43)
[2019-09-19 09:06] LABS: Albumin 4.1 g/dL (3.4-5.0); Bilirubin Direct 0.1 mg/dL (0-0.2); Bilirubin Total 0.4 mg/dL (0.2-1.0); Protein, Total 7.5 g/dL (6.4-8.2)
--- NOTE | 2019-09-19 09:26 | ER ---
Nurse's Notes [facility] Name: Randal Arnett Age: 24 yrs Sex: Male : 1995 Arrival Date: 09/19/2019 Time: 08:02 Bed 5 Private MD: None, None Diagnosis: Abdominal tenderness;Vomiting;Diarrhea, unspecified Presentation: 09/18 08:20 Chief complaint: Nausea x 2 weeks, upper abdominal pain x 3 days, vomit x 1 today. hb Denies fever. Coronavirus screen: Proceed with normal triage. Ebola Screen: No symptoms or risks identified at this time. Initial Sepsis Screen: Does the patient meet any 2 criteria? No. Patient's initial sepsis screen is negative. Does the patient have a suspected source of infection? No. Patient's initial sepsis screen is negative. Risk Assessment: Do you want to hurt yourself or someone else? Patient reports no desire to harm self or others. Onset of symptoms was September 06, 2019. 08:20 Method Of Arrival: Ambulatory hb 08:20 Acuity: KWAN 3 hb Historical: - Allergies: 08:22 No Known Allergies; hb - PMHx: 08:22 Anxiety; Asthma; Depression; hb - PSHx: 08:22 None; hb - Immunization history:: Adult Immunizations up to date. - Social history:: Smoking status: Patient reports the use of cigarette tobacco products, smokes one-half pack cigarettes per day. - Family history:: not pertinent. Screenin:19 Abuse screen: Denies threats or abuse. Denies injuries from another. Nutritional sv screening: No deficits noted. Tuberculosis screening: No symptoms or risk factors identified. Fall Risk None identified. Assessment: 08:35 General: Appears in no apparent distress. uncomfortable, slender, well groomed, well sv developed, Behavior is calm, cooperative, appropriate for age. Pain: Complains of pain in epigastric area, right upper quadrant and left upper quadrant Pain does not radiate. Pain currently is 7 out of 10 on a pain scale. Quality of pain is described as burning, Pain began 2 weeks ago Is continuous. Neuro: Level of Consciousness is awake, alert, obeys commands, Oriented to person, place, time, situation, Moves all extremities. Full function Gait is steady. Respiratory: Airway is patent Respiratory effort is even, unlabored, Respiratory pattern is regular, symmetrical. GI: Abdomen is flat, Abd is soft and non tender X 4 quads. Reports upper abdominal pain, indigestion. Derm: Skin is intact, Skin is pink, warm \T\ dry. 09:43 Reassessment: Patient appears in no apparent distress at this time. Patient and/or sv family updated on plan of care and expected duration. Pain level reassessed. Patient is alert, oriented x 3, equal unlabored respirations, skin warm/dry/pink. Patient states feeling better. Patient states symptoms have improved. Vital Signs: 08:20 BP 118 / 76; Pulse 74; Resp 16; Temp 97.8; Pulse Ox 100% ; Weight 79.38 kg; Height 5 hb ft. 9 in. (175.26 cm); Pain 7/10; 09:00 Pain 3/10; sv 08:20 Body Mass Index 25.84 (79.38 kg, 175.26 cm) hb ED Course: 08:02 Patient arrived in ED. mr 08:03 None, None is Private Physician. mr 08:16 Gunjan Santiago, LOPEZ is Primary Nurse. sv 08:17 Arm band placed on. sv 08:18 Tramaine Ring MD is Attending Physician. rylie 08:19 Patient has correct armband on for positive identification. Bed in low position. Call sv light in reach. Pulse ox on. NIBP on. 08:21 Triage completed. hb 08:40 Inserted saline lock: 20 gauge in right antecubital area, using aseptic technique. sv ,using aseptic technique. done by [facility] Blood collected. 08:48 Awaiting lab results, Awaiting for x-ray. sv 08:48 Initial lab(s) drawn, by hi, sent to lab. mh5 08:49 Warm blanket given. mh5 09:12 Abdomen with Erect XRAY In Process Unspecified. EDMS 09:25 Kolby Delacruz MD is Referral Physician. rylie 09:42 No provider procedures requiring assistance completed. IV discontinued, intact, sv bleeding controlled, No redness/swelling at site. Pressure dressing applied. Administered Medications: 08:40 Drug: Pepcid 20 mg Route: IVP; Site: right antecubital; sv 09:00 Follow up: Response: No adverse reaction sv 08:42 Drug: Zofran (Ondansetron) 4 mg Route: IVP; Site: right antecubital; sv 09:00 Follow up: Response: No adverse reaction sv 08:44 Drug: morphine 2 mg {Note: rass1.} Route: IVP; Site: right antecubital; sv 09:00 Follow up: Pain 3/10 Adult; Response: No adverse reaction; Marked relief of symptoms; sv Pain is decreased Outcome: 09:26 Discharge ordered by MD. youngblood 09:43 Discharged to home ambulatory. sv 09:43 Condition: stable 09:43 Discharge instructions given to patient, Instructed on discharge instructions, follow up and referral plans. medication usage, diet modifications Demonstrated understanding of instructions, follow-up care, medications, Prescriptions given X 2. 09:43 Patient left the ED. sv Signatures: Dispatcher [employer] Gunjan Berger RN RN sv Anderson, Corey, MD MD cha Rivera, Mary mr Baxter, Heather, RN RN hb Martinez, Maria [facility] Corrections: (The following items were deleted from the chart) 08:46 08:44 morphine 2 mg IVP in right antecubital sv sv
--- NOTE | 2019-09-19 09:26 | EDPHYS ---
Physician Documentation [facility] Name: Randal Arnett Age: 24 yrs Sex: Male : 1995 Arrival Date: 09/19/2019 Time: 08:02 Bed 5 Private MD: None, None ED Physician Tramaine Ring HPI: 09/18 08:28 This 24 yrs old Male presents to ER via Ambulatory with complaints of rylie Abdominal Pain. 08:28 The patient presents with abdominal pain in the upper abdomen. Onset: The rylie symptoms/episode began/occurred 3 day(s) ago. The patient presents to the emergency department with nausea, vomiting, that is continuous, diarrhea, that is intermittent, abdominal pain, of the right upper quadrant, left upper quadrant, right lower quadrant and left lower quadrant. Onset: The symptoms/episode began/occurred 3 day(s) ago. Possible causes: unknown. The symptoms are aggravated by food , The symptoms are alleviated by nothing. Associated signs and symptoms: Pertinent positives: abdominal pain, diarrhea, nausea, vomiting. Modifying factors: The symptoms are alleviated by nothing, the symptoms are aggravated by food. Historical: - Allergies: 08:22 No Known Allergies; hb - PMHx: 08:22 Anxiety; Asthma; Depression; hb - PSHx: 08:22 None; hb - Immunization history:: Adult Immunizations up to date. - Social history:: Smoking status: Patient reports the use of cigarette tobacco products, smokes one-half pack cigarettes per day. - Family history:: not pertinent. ROS: 08:28 Constitutional: Negative for fever, chills, and weight loss, Eyes: Negative for injury, rylie pain, redness, and discharge, ENT: Negative for injury, pain, and discharge, Neck: Negative for injury, pain, and swelling, Cardiovascular: Negative for chest pain, palpitations, and edema, Respiratory: Negative for shortness of breath, cough, wheezing, and pleuritic chest pain, Back: Negative for injury and pain, : Negative for injury, bleeding, discharge, and swelling, MS/Extremity: Negative for injury and deformity, Skin: Negative for injury, rash, and discoloration, Neuro: Negative for headache, weakness, numbness, tingling, and seizure, Psych: Negative for depression, anxiety, suicide ideation, homicidal ideation, and hallucinations, Allergy/Immunology: Negative for hives, rash, and allergies, Endocrine: Negative for neck swelling, polydipsia, polyuria, polyphagia, and marked weight changes, Hematologic/Lymphatic: Negative for swollen nodes, abnormal bleeding, and unusual bruising. 08:28 Abdomen/GI: Positive for abdominal pain, nausea and vomiting, nausea, vomiting, diarrhea, abdominal cramps, of the right upper quadrant, left upper quadrant, right lower quadrant and left lower quadrant. Exam: 08:28 Constitutional: This is a well developed, well nourished patient who is awake, alert, rylie and in no acute distress. Head/Face: Normocephalic, atraumatic. Eyes: Pupils equal round and reactive to light, extra-ocular motions intact. Lids and lashes normal. Conjunctiva and sclera are non-icteric and not injected. Cornea within normal limits. Periorbital areas with no swelling, redness, or edema. ENT: Nares patent. No nasal discharge, no septal abnormalities noted. Tympanic membranes are normal and external auditory canals are clear. Oropharynx with no redness, swelling, or masses, exudates, or evidence of obstruction, uvula midline. Mucous membranes moist. Neck: Trachea midline, no thyromegaly or masses palpated, and no cervical lymphadenopathy. Supple, full range of motion without nuchal rigidity, or vertebral point tenderness. No Meningismus. Chest/axilla: Normal chest wall appearance and motion. Nontender with no deformity. No lesions are appreciated. Cardiovascular: Regular rate and rhythm with a normal S1 and S2. No gallops, murmurs, or rubs. Normal PMI, no JVD. No pulse deficits. Respiratory: Lungs have equal breath sounds bilaterally, clear to auscultation and percussion. No rales, rhonchi or wheezes noted. No increased work of breathing, no retractions or nasal flaring. Back: No spinal tenderness. No costovertebral tenderness. Full range of motion. Male : Normal genitalia with no discharge or lesions. Skin: Warm, dry with normal turgor. Normal color with no rashes, no lesions, and no evidence of cellulitis. MS/ Extremity: Pulses equal, no cyanosis. Neurovascular intact. Full, normal range of motion. Neuro: Awake and alert, GCS 15, oriented to person, place, time, and situation. Cranial nerves II-XII grossly intact. Motor strength 5/5 in all extremities. Sensory grossly intact. Cerebellar exam normal. Normal gait. Psych: Awake, alert, with orientation to person, place and time. Behavior, mood, and affect are within normal limits. 08:28 Abdomen/GI: Inspection: abdomen appears normal, Bowel sounds: normal, Palpation: moderate abdominal tenderness, in all quadrants, Liver: Hernia: not appreciated. Vital Signs: 08:20 BP 118 / 76; Pulse 74; Resp 16; Temp 97.8; Pulse Ox 100% ; Weight 79.38 kg; Height 5 hb ft. 9 in. (175.26 cm); Pain 7/10; 09:00 Pain 3/10; sv 08:20 Body Mass Index 25.84 (79.38 kg, 175.26 cm) hb MDM: 08:18 Patient medically screened. rylie 08:31 Differential diagnosis: Nonspecific abd pain, gastritis, gastroenteritis, appendicitis, rylie bowel obstruction, cholecystitis, Cholelithiasis, diverticulitis, gastritis, non-specific abd pain, pancreatitis, urinary tract infection. Data reviewed: vital signs, nurses notes, lab test result(s), radiologic studies, plain films. 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 Pulse oximetry: on room air is 100 %. Test interpretation: by ED physician or midlevel provider: plain radiologic studies. Counseling: I had a detailed discussion with the patient and/or guardian regarding: the historical points, exam findings, and any diagnostic results supporting the discharge/admit diagnosis, lab results, radiology results. Medication response: Zofran markedly relieved the patient's nausea. 09:23 ED course: pt exam improved, no pain, no guarding and no rebound. ED course: plan rylie explained, and follow up given. pt will return if symptoms worsen or vpersist. 09/18 08:28 Order name: Basic Metabolic Panel; Complete Time: 09:10 rylie 09/18 08:28 Order name: CBC with Diff; Complete Time: : rylie 09/18 08:28 Order name: Hepatic Function; Complete Time: 09: rylie 09/18 08:28 Order name: Lipase; Complete Time: 09:10 rylie 09/18 08:28 Order name: Abdomen with Erect XRAY [facility] 09/18 09:22 Order name: Urine Dipstick--Ancillary (enter results) 09/18 08:28 Order name: IV Saline Lock; Complete Time: 08:46 [facility] 09/18 08:28 Order name: Labs collected and sent; Complete Time: 08:46 [facility] 09/18 08:28 Order name: Urine Dipstick-Ancillary (obtain specimen); Complete Time: 09:42 [facility] Administered Medications: 08:40 Drug: Pepcid 20 mg Route: IVP; Site: right antecubital; sv 09:00 Follow up: Response: No adverse reaction sv 08:42 Drug: Zofran (Ondansetron) 4 mg Route: IVP; Site: right antecubital; sv 09:00 Follow up: Response: No adverse reaction sv 08:44 Drug: morphine 2 mg {Note: rass1.} Route: IVP; Site: right antecubital; sv 09:00 Follow up: Pain 3/10 Adult; Response: No adverse reaction; Marked relief of symptoms; sv Pain is decreased Disposition: 09/19/19 09:26 Discharged to Home. Impression: Abdominal tenderness, Vomiting, Diarrhea, unspecified. - Condition is Stable. - Discharge Instructions: Abdominal Pain, Adult, Food Choices to Help Relieve Diarrhea, Adult, Diarrhea, Adult, Nausea and Vomiting, Adult, Abdominal Pain, Adult, [id number], Diarrhea, Adult, [id number]. - Prescriptions for Pepcid 20 mg Oral Tablet - take 1 tablet by ORAL route every 12 hours for 10 days; 20 tablet. Zofran 4 mg Oral Tablet - take 1 tablet by ORAL route every 12 hours As needed; 20 tablet. - Work release form, Medication Reconciliation Form, Thank You Letter, Antibiotic Education, Prescription Opioid Use form. - Follow up: Private Physician; When: 2 - 3 days; Reason: Recheck today's complaints, Continuance of care, Re-evaluation by your physician. Follow up: Kolby Delacruz; When: 2 - 3 days; Reason: Recheck today's complaints, Re-evaluation by your physician. - Problem is new. - Symptoms have improved. Signatures: Dispatcher [employer] Gunjan Berger RN RN Tramaine Vincent MD MD cha Baxter, Heather, RN RN Corrections: (The following items were deleted from the chart) 09:43 09:26 09/19/2019 09:26 Discharged to Home. Impression: Abdominal tenderness; Vomiting; sv Diarrhea, unspecified. Condition is Stable. Discharge Instructions: Abdominal Pain, Adult, Nausea and Vomiting, Adult, Abdominal Pain, Adult, Nmxu-[id number], Food Choices to Help Relieve Diarrhea, Adult, Diarrhea, Adult, Diarrhea, Adult, [id number]. Prescriptions for Pepcid 20 mg Oral Tablet - take 1 tablet by ORAL route every 12 hours for 10 days; 20 tablet, Zofran 4 mg Oral Tablet - take 1 tablet by ORAL route every 12 hours As needed; 20 tablet. and Forms are Medication Reconciliation Form, Thank You Letter, Antibiotic Education, Prescription Opioid Use. Follow up: Private Physician; When: 2 - 3 days; Reason: Recheck today's complaints, Continuance of care, Re-evaluation by your physician. Follow up: Kolby Delacruz; When: 2 - 3 days; Reason: Recheck today's complaints, Re-evaluation by your physician. Problem is new. Symptoms have improved. rylie
--- NOTE | 2019-09-19 09:31 | RAD REPORT ---
EXAM DESCRIPTION: RAD - Abdomen W Erect - 09/19/2019 9:12 am CLINICAL HISTORY: ABD PAIN COMPARISON: No comparisons TECHNIQUE: Supine and upright views of the abdomen were obtained. FINDINGS: Bowel gas pattern is nonspecific with no obstruction, free air or pneumatosis. No abnormal calcifications. No soft tissue abnormality. No significant bony finding. IMPRESSION: Negative two-view abdomen examination.
[2019-09-19 09:51] VITALS: BP 118/76; TEMP 97.8; O2SAT 100
[2019-09-19 10:00] LABS: Urine Blood TRACE (NEG); Urine Glucose NEGATIVE (NEG); Urine Protein NEGATIVE (NEG); Urine pH 5.5 (5.0-7.0)
== END 2019-09-19 09:43 | disposition home or self-care (01) ==
LOC: ER 07:59
DX: R10.9 Unspecified abdominal pain (principal); R11.10 Vomiting, unspecified; R19.7 Diarrhea, unspecified; F17.210 Nicotine dependence, cigarettes, uncomplicated
CPT/HCPCS: 36415; 74019; 80048; 80076; 81003; 83690; 85025; 96374; 96375; 99284; J2270; J2405

== ENCOUNTER 2019-11-30 10:00 | Emergency (ER) | payer SELFPAY ==
--- NOTE | 2019-11-30 12:48 | RAD REPORT ---
EXAM DESCRIPTION: RAD - Hand Right 3 View - 11/30/2019 12:26 pm CLINICAL HISTORY: Right hand pain FINDINGS: No fracture or dislocation is seen. No bone or joint abnormality noted
--- NOTE | 2019-11-30 13:20 | ER ---
Nurse's Notes [facility] Name: Randal Arnett Age: 24 yrs Sex: Male : 1995 Arrival Date: 11/30/2019 Time: 10:00 Bed 19 Private MD: Diagnosis: Pain in right hand;Nondisplaced fracture of base of fifth metacarpal bone, right hand Presentation: 11/29 10:30 Coronavirus screen: Client denies travel out of the [place] in the last 14 days. At this ll1 time, the client does not indicate any symptoms associated with coronavirus-19. The client reports previous COVID testing was negative. Ebola Screen: Patient denies travel to an Ebola-affected area in the 21 days before illness onset. Initial Sepsis Screen: Does the patient meet any 2 criteria? No. Patient's initial sepsis screen is negative. Risk Assessment: Do you want to hurt yourself or someone else? Patient reports no desire to harm self or others. Onset of symptoms was November 16, 2019. 10:30 Method Of Arrival: Ambulatory ll1 10:30 Acuity: KWAN 4 ll1 10:31 Chief complaint: Patient states: Right wrist pain for 2 weeks int. 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 No specific trauma recently. PMS intact. Triage Assessment: 10:45 General: Appears in no apparent distress. comfortable, Behavior is calm, cooperative, bp appropriate for age. Pain: Complains of pain in dorsal aspect of right wrist. EENT: No deficits noted. Neuro: No deficits noted. Cardiovascular: No deficits noted. Respiratory: No deficits noted. GI: No signs and/or symptoms were reported involving the gastrointestinal system. : No signs and/or symptoms were reported regarding the genitourinary system. Derm: No deficits noted. Musculoskeletal: Reports pain in dorsal aspect of right wrist. Historical: - Allergies: 10:29 No Known Allergies; ll1 - PMHx: 10:29 Anxiety; Asthma; Depression; ll1 - PSHx: 10:29 None; ll1 - Immunization history:: Last tetanus immunization: unknown, Flu vaccine is up to date. - Social history:: Smoking status: Patient reports the use of cigarette tobacco products, smokes one pack cigarettes per day. Patient uses alcohol, only on a social basis. Patient/guardian denies using IV drugs. Screenin:45 Abuse screen: Denies threats or abuse. Denies injuries from another. Nutritional bp screening: No deficits noted. Tuberculosis screening: No symptoms or risk factors identified. Fall Risk None identified. Assessment: 10:45 General: SEE TRIAGE NOTE. bp 13:00 Reassessment: ALL CURRENT ORDERS COMPLETED, DISPO PENDING. XRAY UNREMARKABLE. bp 13:29 Reassessment: PT D/C HOME AMBULATORY, DX WITH NONDISPLACED FX OF RIGHT FIFTH METACARPAL.bp Vital Signs: 10:30 BP 114 / 76; Pulse 93; Resp 16; Temp 98.9; Pulse Ox 100% ; Weight 79.38 kg; Height 5 ll1 ft. 10 in. (177.80 cm); Pain 7/10; 13:00 BP 121 / 71; Pulse 85; Resp 17; Temp 98.5; Pulse Ox 99% ; bp 10:30 Body Mass Index 25.11 (79.38 kg, 177.80 cm) ll1 ED Course: 10:00 Patient arrived in ED. as 10:24 [facility] snw 10:24 Tramaine Ring MD is Attending Physician. snw 10:31 Triage completed. ll1 10:31 Arm band placed on. ll1 10:45 Patient has correct armband on for positive identification. Bed in low position. Call bp light in reach. Side rails up X2. 11:05 Mando Cortes, RN is Primary Nurse. bp 12:26 Hand Right 3 View XRAY In Process Unspecified. EDMS 13:28 No provider procedures requiring assistance completed. Patient did not have IV access bp during this emergency room visit. Orthoglass splint: Ulnar gutter/Boxer splint applied on right forearm. Administered Medications: No medications were administered Outcome: 13:19 Discharge ordered by . snw 13:30 Discharged to home ambulatory. bp 13:30 Condition: stable 13:30 Discharge instructions given to patient, Instructed on discharge instructions, follow up and referral plans. medication usage, Demonstrated understanding of instructions, follow-up care, medications, splint care, Prescriptions given X 1. 13:30 Patient left the ED. bp Signatures: Dispatcher [employer] EDMS Ashley De Leon FNP-C MEDICAL TECHNOLOGIST HEMATOLOGY-[facility] Jarvis as Mando Cortes, RN RN bp Nithin Kidd, RN RN ll1
--- NOTE | 2019-11-30 13:20 | EDPHYS ---
Physician Documentation [facility] Name: Randal Arnett Age: 24 yrs Sex: Male : 1995 Arrival Date: 11/30/2019 Time: 10:00 Bed 19 Private MD: ED Physician Tramaine Ring HPI: 11/29 13:26 This 24 yrs old Male presents to ER via Ambulatory with complaints of Hand snw Pain, Hand Swelling. 13:26 The patient or guardian reports decreased range of motion, pain, swelling. The snw complaints affect the dorsal aspect of right wrist. Context: The problem was sustained at work, resulted from an unknown cause. Onset: The symptoms/episode began/occurred gradually, 2 day(s) ago, and became worse today, and became persistent. Associated signs and symptoms: The patient has no apparent associated signs or symptoms. Severity of symptoms: At their worst the symptoms were moderate, severe. The patient has not experienced similar symptoms in the past. The patient has not recently seen a physician. Historical: - Allergies: 10:29 No Known Allergies; ll1 - PMHx: 10:29 Anxiety; Asthma; Depression; ll1 - PSHx: 10:29 None; ll1 - Immunization history:: Last tetanus immunization: unknown, Flu vaccine is up to date. - Social history:: Smoking status: Patient reports the use of cigarette tobacco products, smokes one pack cigarettes per day. Patient uses alcohol, only on a social basis. Patient/guardian denies using IV drugs. ROS: 13:26 Constitutional: Negative for fever, chills, and weight loss, Eyes: Negative for injury, snw pain, redness, and discharge, ENT: Negative for injury, pain, and discharge, Neck: Negative for injury, pain, and swelling, Cardiovascular: Negative for chest pain, palpitations, and edema, Respiratory: Negative for shortness of breath, cough, wheezing, and pleuritic chest pain, Abdomen/GI: Negative for abdominal pain, nausea, vomiting, diarrhea, and constipation, Back: Negative for injury and pain, : Negative for injury, bleeding, discharge, and swelling, Skin: Negative for injury, rash, and discoloration, Neuro: Negative for headache, weakness, numbness, tingling, and seizure, Psych: Negative for depression, anxiety, suicide ideation, homicidal ideation, and hallucinations. 13:26 MS/extremity: Positive for injury or acute deformity, decreased range of motion, pain, swelling, of the dorsal aspect of right wrist. Exam: 13:25 Constitutional: This is a well developed, well nourished patient who is awake, alert, snw and in no acute distress. Head/Face: Normocephalic, atraumatic. Eyes: Pupils equal round and reactive to light, extra-ocular motions intact. Lids and lashes normal. Conjunctiva and sclera are non-icteric and not injected. Cornea within normal limits. Periorbital areas with no swelling, redness, or edema. ENT: Nares patent. No nasal discharge, no septal abnormalities noted. Tympanic membranes are normal and external auditory canals are clear. Oropharynx with no redness, swelling, or masses, exudates, or evidence of obstruction, uvula midline. Mucous membranes moist. Neck: Trachea midline, no thyromegaly or masses palpated, and no cervical lymphadenopathy. Supple, full range of motion without nuchal rigidity, or vertebral point tenderness. No Meningismus. Chest/axilla: Normal chest wall appearance and motion. Nontender with no deformity. No lesions are appreciated. Cardiovascular: Regular rate and rhythm with a normal S1 and S2. No gallops, murmurs, or rubs. Normal PMI, no JVD. No pulse deficits. Respiratory: Lungs have equal breath sounds bilaterally, clear to auscultation and percussion. No rales, rhonchi or wheezes noted. No increased work of breathing, no retractions or nasal flaring. Abdomen/GI: Soft, non-tender, with normal bowel sounds. No distension or tympany. No guarding or rebound. No evidence of tenderness throughout. Back: No spinal tenderness. No costovertebral tenderness. Full range of motion. Skin: Warm, dry with normal turgor. Normal color with no rashes, no lesions, and no evidence of cellulitis. Neuro: Awake and alert, GCS 15, oriented to person, place, time, and situation. Cranial nerves II-XII grossly intact. Motor strength 5/5 in all extremities. Sensory grossly intact. Cerebellar exam normal. Normal gait. Psych: Awake, alert, with orientation to person, place and time. Behavior, mood, and affect are within normal limits. 13:25 Musculoskeletal/extremity: Extremities: grossly normal except: noted in the dorsal aspect of right wrist: decreased ROM, swelling, tenderness, ROM: limited active range of motion due to pain, in the dorsal aspect of right wrist, limited passive range of motion due to pain, Circulation is intact in all extremities. Sensation intact. Compartment Syndrome exam of affected extremity: is normal. Vital Signs: 10:30 BP 114 / 76; Pulse 93; Resp 16; Temp 98.9; Pulse Ox 100% ; Weight 79.38 kg; Height 5 ll1 ft. 10 in. (177.80 cm); Pain 7/10; 13:00 BP 121 / 71; Pulse 85; Resp 17; Temp 98.5; Pulse Ox 99% ; bp 10:30 Body Mass Index 25.11 (79.38 kg, 177.80 cm) ll1 MDM: 11:07 Patient medically screened. [facility] 13:25 Data reviewed: vital signs, nurses notes. Data interpreted: Pulse oximetry: on room air snw is 99 %. Interpretation: normal. Counseling: I had a detailed discussion with the patient and/or guardian regarding: the historical points, exam findings, and any diagnostic results supporting the discharge/admit diagnosis, radiology results, the need for outpatient follow up, to return to the emergency department if symptoms worsen or persist or if there are any questions or concerns that arise at home. Special discussion: Based on the history and exam findings, there is no indication for further emergent testing or inpatient evaluation. I discussed with the patient/guardian the need to see the orthopedic surgeon for further evaluation of the symptoms. I discussed with the patient/guardian the need to see the primary care provider for further evaluation of the symptoms. 11/29 11:26 Order name: Hand Right 3 View XRAY; Complete Time: 13:05 snw 11/29 13:08 Order name: Ulnar Gutter splint; Complete Time: 13:28 snw Administered Medications: No medications were administered Disposition: 15:25 Co-signature as Attending Physician, Tramaine Ring MD I agree with the assessment and [facility] plan of care. Disposition: 11/30/19 13:19 Discharged to Home. Impression: Pain in right hand, Nondisplaced fracture of base of fifth metacarpal bone, right hand. - Condition is Stable. - Discharge Instructions: Cast or Splint Care, Adult, Musculoskeletal Pain, Cryotherapy, [id number], Hand Exercises, Hand Pain. - Prescriptions for Mobic 7.5 mg Oral Tablet - take 1 tablet by ORAL route once daily take with food; 20 tablet. - Work release form, Medication Reconciliation Form, Thank You Letter, Antibiotic Education, Prescription Opioid Use form. - Follow up: Emergency Department; When: As needed; Reason: Worsening of condition. Follow up: Private Physician; When: 2 - 3 days; Reason: Recheck today's complaints, Continuance of care, Re-evaluation by your physician. Signatures: Dispatcher [employer] EDMS Tramaine Ring MD MD cha Waters, Shelly, HOT DIP PLATER-C HOT DIP PLATER-Csnw Mando Cortes RN RN bp Nithin Kidd RN RN ll1 Corrections: (The following items were deleted from the chart) 13:30 13:19 11/30/2019 13:19 Discharged to Home. Impression: Pain in right hand; Nondisplaced bp fracture of base of fifth metacarpal bone, right hand. Condition is Stable. Forms are Medication Reconciliation Form, Thank You Letter, Antibiotic Education, Prescription Opioid Use. Follow up: Emergency Department; When: As needed; Reason: Worsening of condition. Follow up: Private Physician; When: 2 - 3 days; Reason: Recheck today's complaints, Continuance of care, Re-evaluation by your physician. snw
[2019-11-30 13:47] VITALS: BP 121/71; TEMP 98.5; O2SAT 99
== END 2019-11-30 13:30 | disposition home or self-care (01) ==
LOC: ER 10:00
PROC: 2W3CX1Z Immobilization of Right Lower Arm using Splint (ICD-10-PCS; principal; 2019-11-30)
DX: S62.346A Nondisplaced fracture of base of fifth metacarpal bone, right hand, initial encounter for closed fracture (principal); X58.XXXA Exposure to other specified factors, initial encounter; Y93.9 Activity, unspecified; Y92.89 Other specified places as the place of occurrence of the external cause; Y99.8 Other external cause status; F17.210 Nicotine dependence, cigarettes, uncomplicated
CPT/HCPCS: 99283

== ENCOUNTER 2020-10-30 18:29 | Emergency (ER) | payer SELFPAY ==
--- NOTE | 2020-10-30 18:53 | ER ---
Nurse's Notes [facility] Name: Randal Arnett Age: 25 yrs Sex: Male : 1995 Arrival Date: 10/30/2020 Time: 18:31 Bed Waiting Private MD: Diagnosis: ED Course: 10/30 18:31 Patient arrived in ED. rg4 18:38 Patient's name was called from ER lobby. No response. Unable to locate patient. Will hb disposition as left without being seen by a provider. Administered Medications: No medications were administered Outcome: 18:53 Patient left the ED. hb Signatures: Joie Escalera RN RN Danica Lagunas rg4
== END 2020-10-30 18:53 | disposition left against medical advice (07) ==
LOC: ER 18:29
DX: Z02.9 Encounter for administrative examinations, unspecified (principal)

== ENCOUNTER 2021-04-05 22:38 | Emergency (ER) | payer SELFPAY ==
--- NOTE | 2021-04-05 23:37 | EDPHYS ---
Physician Documentation [facility] Name: Randal Arnett Age: 25 yrs Sex: Male : 1995 Arrival Date: 04/05/2021 Time: 22:40 Bed Waiting Private MD: ED Physician Abhijit Mortensen HPI: 04/05 23:29 This 25 yrs old Male presents to ER via Unassigned with complaints of Sore cp Throat. 23:29 The patient presents with sore throat. Onset: The symptoms/episode began/occurred cp yesterday. Associated signs and symptoms: Pertinent positives: cough, earache, fever, Pertinent negatives diarrhea, headache, vomiting. Historical: - Allergies: 23:29 No Known Allergies; iw - PMHx: 23:29 Anxiety; Asthma; Depression; iw ROS: 23:30 Eyes: Negative for injury, pain, redness, and discharge. cp 23:30 ENT: Positive for ear pain, sore throat, Negative for drainage from ear(s), sinus pain. 23:30 Respiratory: Positive for cough, Negative for shortness of breath, wheezing. 23:30 Abdomen/GI: Negative for abdominal pain, nausea, vomiting, and diarrhea. 23:30 Neuro: Negative for altered mental status, headache, weakness. 23:30 All other systems are negative. Exam: 23:31 Head/Face: Normocephalic, atraumatic. cp 23:31 Constitutional: The patient appears in no acute distress, alert, awake, non-toxic, well developed, well nourished. 23:31 Eyes: Periorbital structures: appear normal, Conjunctiva: normal, no exudate, no injection, Lids and lashes: appear normal, bilaterally. 23:31 ENT: External ear(s): are unremarkable, Ear canal(s): are normal, clear, TM's: erythema, that is mild, bilaterally, Nose: is normal, Mouth: Lips: dry, Oral mucosa: dry, Posterior pharynx: Airway: no evidence of obstruction, patent, Tonsils: no enlargement, no exudate, erythema, that is mild, exudate, is not appreciated. 23:31 Neck: ROM/movement: is normal, is supple, no meningismus, no nuchal rigidity, Lymph nodes: lymphadenopathy is appreciated, anterior cervical nodes. 23:31 Chest/axilla: Inspection: normal. 23:31 Respiratory: the patient does not display signs of respiratory distress, Respirations: normal, no use of accessory muscles, no retractions, labored breathing, is not present, Breath sounds: are clear throughout, no decreased breath sounds, no stridor, no wheezing. Vital Signs: 23:36 BP 138 / 74; Pulse 89; Resp 16; Temp 98.0; Pulse Ox 100% on R/A; iw MDM: 23:33 Differential diagnosis: group A strep tonsillitis, peritonsillar abscess pharyngitis, cp tonsillitis, otitis media. 23:34 Data reviewed: nurses notes, and as a result, I will discharge patient. Counseling: I cp had a detailed discussion with the patient and/or guardian regarding: the historical points, exam findings, and any diagnostic results supporting the discharge/admit diagnosis, to return to the emergency department if symptoms worsen or persist or if there are any questions or concerns that arise at home. 23:36 Patient medically screened. cp Administered Medications: No medications were administered Disposition: 04/06 01:19 Co-signature as Attending Physician, Abhijit Mortensen MD. yolanda Disposition Summary: 04/05/21 23:36 Discharge Ordered Location: Home cp Problem: new cp Symptoms: are unchanged cp Condition: Stable cp Diagnosis - Otitis media, unspecified, bilateral cp - Acute pharyngitis, unspecified cp Followup: cp - With: Gunjan Bonner MD - When: 1 week - Reason: Recheck today's complaints Discharge Instructions: - Discharge Summary Sheet cp - Otitis Media, Adult cp - Pharyngitis cp Forms: - Medication Reconciliation Form cp - Thank You Letter cp - Antibiotic Education cp - Prescription Opioid Use cp Prescriptions: - Augmentin 875-125 mg Oral Tablet - take 1 tablet by ORAL route every 12 hours for 10 days; 20 tablet; Refills: 0, cp Product Selection Permitted Signatures: Abhijit Mortensen MD MD pkChristina Rao RN RN Tramaine Short PA PA cp
--- NOTE | 2021-04-05 23:37 | ER ---
Nurse's Notes [facility] Name: Randal Arnett Age: 25 yrs Sex: Male : 1995 Arrival Date: 04/05/2021 Time: 22:40 Bed Waiting Private MD: Diagnosis: Otitis media, unspecified, bilateral;Acute pharyngitis, unspecified Presentation: 04/05 23:28 Chief complaint: Patient states: sore throat , feels weird, and ear pain. Coronavirus iw screen: At this time, the client does not indicate any symptoms associated with coronavirus-19. Ebola Screen: Patient negative for fever greater than or equal to 101.5 degrees Fahrenheit, and additional compatible Ebola Virus Disease symptoms Patient denies exposure to infectious person. Patient denies travel to an Ebola-affected area in the 21 days before illness onset. No symptoms or risks identified at this time. Initial Sepsis Screen: Does the patient meet any 2 criteria? No. Patient's initial sepsis screen is negative. Does the patient have a suspected source of infection? No. Patient's initial sepsis screen is negative. Risk Assessment: Do you want to hurt yourself or someone else? Patient reports no desire to harm self or others. Onset of symptoms was April 05, 2021. 23:28 Method Of Arrival: Ambulatory iw 23:28 Acuity: KWAN 4 iw Historical: - Allergies: 23:29 No Known Allergies; iw - PMHx: 23:29 Anxiety; Asthma; Depression; iw Screenin:28 Abuse screen: Denies threats or abuse. Denies injuries from another. Nutritional iw screening: No deficits noted. Tuberculosis screening: No symptoms or risk factors identified. Fall Risk None identified. Assessment: 23:28 General: Appears in no apparent distress. Behavior is calm, cooperative. Neuro: Level iw of Consciousness is awake, alert, obeys commands, Oriented to person, place, time, situation, Moves all extremities. Full function. Cardiovascular: Patient's skin is warm and dry. Respiratory: Airway is patent Respiratory effort is even, unlabored, Breath sounds are clear bilaterally. EENT: Derm: Skin is intact, is healthy with good turgor. Vital Signs: 23:36 BP 138 / 74; Pulse 89; Resp 16; Temp 98.0; Pulse Ox 100% on R/A; iw ED Course: 22:40 Patient arrived in ED. bp1 22:55 Tramaine Mijares PA is PHCP. cp 22:55 Abhijit Mortensen MD is Attending Physician. cp 23:29 Triage completed. iw 23:35 Gunjan Bonner MD is Referral Physician. cp 23:36 No provider procedures requiring assistance completed. Patient did not have IV access iw during this emergency room visit. Administered Medications: No medications were administered Outcome: 23:36 Discharge ordered by . cp 23:55 Discharged to home ambulatory. iw 23:55 Condition: good 23:55 Discharge instructions given to patient, Instructed on discharge instructions, follow up and referral plans. Demonstrated understanding of instructions, follow-up care, medications, Prescriptions given X 1. 04/06 00:00 Patient left the ED. tt3 Signatures: Christina Gomez RN RN Tramaine Mijares PA PA cp Gabby Thomas bp1 Jhony Strickland tt3
== END 2021-04-06 | disposition home or self-care (01) ==
LOC: ER 22:38
DX: H66.93 Otitis media, unspecified, bilateral (principal)
CPT/HCPCS: 99282